=== PATIENT | male | born 1950 | race Caucasian/White ===

== ENCOUNTER 2016-06-24 07:53 | Day surgery (SDC) | payer BC, OTHER ==
[~2016-06-24 07:53] MED LIST: FENTANYL 250 MCG/5 ML AMP IV PRN; LACTATED RINGERS 1,000 ML IV SCH; LIDOCAINE Viscous 2% 15 ML UDCUP PO PRN; MIDAZOLAM HCL 5 MG/5 ML VIAL IV PRN
[2016-06-24] MEDS ORDERED: IV START KIT ONE (07:59)
[2016-06-24] MEDS ORDERED: LACTATED RINGERS 1,000 ML ONE (07:59)
[2016-06-24] MEDS ORDERED: FENTANYL 100 MCG/2 ML VIAL ONE (08:38)
[2016-06-24] MEDS ORDERED: MIDAZOLAM HCL 5 MG/5 ML VIAL ONE (08:38)
[2016-06-24] MEDS ORDERED: LIDOCAINE Viscous 2% 15 ML UDCUP ONE (08:38)
[2016-06-24 13:33] LABS: HELICOBACTER PYLORII DETECTION NEGATIVE (NEGATIVE)
--- NOTE | 2016-06-26 09:47 | SURGPATH ---
[facility] [address] [place] [id number] Patient Name: ERICA MOLINA MR#: [id number] : 1950 Gender: M Specimen #: [id number] Collected: 06/24/2016 Received: 06/25/2016 Reported: 06/26/2016 Submitting Phys: ABA PETE Copy To Phys: [facility] AMALIA CHAPARRO Clinical History / Pre-Operative Diagnosis: EPIGASTRIC PAIN; HEARTBURN; DYSPHAGIA; RULE OUT GASTRITIS Specimen Source / Surgical Procedure Performed: ANTRAL BIOPSY Interpretation: GASTRIC ANTRUM, BIOPSY: - NO PATHOLOGIC ABNORMALITIES Electronically Signed Out Sunny Sidhu M.D. Gross Description: The specimen is received in a formalin filled container labeled with the patient's name and "antral biopsy". Three limon biopsies are 0.2, 0.2 and 0.3 cm. Totally embedded in one cassette. Dominic Davidson Microscopic Description: The sections show fragments of gastric mucosa exhibiting a normal architectural pattern. There are no inflammatory or neoplastic features and there are no Helicobacter-like organisms identified. 1: [id number] R10.13
== END 2016-06-24 09:50 | disposition home or self-care (01) ==
LOC: SDC 07:53
PROVIDERS: ATTEND Internal Medicine Gastroenterology
PROC: 0DB68ZX Excision of Stomach, Via Natural or Artificial Opening Endoscopic, Diagnostic (ICD-10-PCS; principal; 2016-06-24)
DX: K29.70 Gastritis, unspecified, without bleeding (principal); K29.80 Duodenitis without bleeding; E78.5 Hyperlipidemia, unspecified; Z88.5 Allergy status to narcotic agent; Z79.82 Long term (current) use of aspirin
CPT/HCPCS: 43239; 87081; J3010; J2250; A9270; J7120